=== PATIENT | female | born 1945 | race Caucasian/White ===

== ENCOUNTER 2017-03-02 09:23 | Emergency (ER) | payer MEDICARE, OTHER ==
[~2017-03-02] VITALS: Ht 162.6 cm; Wt 52.0 kg
[~2017-03-02 09:23] MED LIST: DONE5TAB14 PO; LEVO25TA4 PO; MEMA10TA PO
[2017-03-02] MEDS ORDERED: SODIUM CHLORIDE 0.9% 1,000 ML IV ONE (09:37)
[2017-03-02] MEDS ORDERED: SODIUM CHLORIDE 0.9% 1,000ML IVBOLUS ONE (10:00)
[2017-03-02 11:56] LABS: BLOOD UREA NITROGEN 25 mg/dL (7-18)
[2017-03-02 17:17] LABS: PATH.CAST-FLAG NOT PRESENT; SPERM-FLAG NOT PRESENT; SRC-FLAG NOT PRESENT; XTAL-FLAG NOT PRESENT; YLC-FLAG NOT PRESENT
[2017-03-02 17:38] VITALS: BP 107/68
[2017-03-02 18:42] LABS: DAU SCREEN DISCLAIMER
== END 2017-03-02 17:41 | disposition home or self-care (01) ==
LOC: ED 12:20
DX: R41.0 Disorientation, unspecified (principal); E03.9 Hypothyroidism, unspecified; G30.9 Alzheimer's disease, unspecified; Z90.710 Acquired absence of both cervix and uterus
CPT/HCPCS: 36415; 71010; 80048; 80307; 81003; 82040; 83605; 85025; 93005; 96360; 96361; 99285; J7030

== ENCOUNTER → 2017-04-01 | Outpatient (CLI) | payer MEDICARE, OTHER | END | disposition home or self-care (01) | LOC: CFH 12:34 | PROVIDERS: ATTEND Physician Assistant | DX: Z02.9 Encounter for administrative examinations, unspecified (principal) ==